=== PATIENT | male | born 1940 ===

== ENCOUNTER 2025-06-13 09:01 | Inpatient (IN) ==
[2025-06-13] MEDS ORDERED: IOPAMIDOL 100 ML BOTTLE IV ONE (09:02)
[2025-06-13 09:43] LABS: Basophils # (Auto) 0.02 K/mcL (0.00-0.30); Basophils % (Auto) 0.2 % (0.0-2.0); Eosinophils # (Auto) 0.01 K/mcL (0.00-0.70); Eosinophils % (Auto) 0.1 % (0.0-7.0); Hematocrit 46.2 % (40.1-51.0); Hemoglobin 15.7 g/dL (13.7-17.5); Lymphocytes # (Auto) 1.66 K/mcL (1.50-4.80); Lymphocytes % (Auto) 13.3 % (15.5-49.0); Mean Corpuscular HGB Conc 34.0 g/dL (31.0-36.0); Monocytes # (Auto) 0.95 K/mcL (0.10-0.90); Monocytes % (Auto) 7.6 % (1.0-12.0); Neutrophils % (Auto) 78.1 % (38.0-78.0); Platelet Count 249 K/mcL (140-440); RBC 5.30 M/mcL (4.63-6.08); WBC 12.5 K/mcL (4.5-11.0)
[2025-06-13 09:53] LABS: INR 1.1 (0.9-1.1); Prothrombin Time 14.5 sec (11.9-14.5)
[2025-06-13 09:58] LABS: Creatine Kinase 24 U/L (24-195)
[2025-06-13 10:03] LABS: Thyroid Stimulating Hormone 1.10 uIU/mL (0.27-5.01)
[2025-06-13 10:23] LABS: Beta Hydroxybutyrate 4.03 mmol/L (<0.27)
[2025-06-13 10:25] LABS: ALT/SGPT 17 U/L (<40); AST/SGOT 13 U/L (<40); Albumin 3.0 gm/dL (3.2-5.2); Albumin/Globulin Ratio 1.2 (1.0-2.3); Alkaline Phosphatase 67 U/L (39-117); Anion Gap 21.0 (8.0-16.0); Bilirubin,Total 0.9 mg/dL (0.1-1.0); Blood Urea Nitrogen 41 mg/dL (8-23); Calcium 9.1 mg/dL (8.6-10.4); Carbon Dioxide 24 mmol/L (22-30); Chloride 80 mmol/L (96-108); Globulin 2.6 gm/dL (2.2-3.7); Glucose 485 mg/dL (70-105); Potassium 3.1 mmol/L (3.3-5.1); Sodium 125 mmol/L (133-145)
[2025-06-13] MEDS: POTASSIUM CHLORIDE 40 MEQ in DEXTROSE 5% IN WATER 500 ML IV ONE (11:19)
[2025-06-13] MEDS: 0.9 % SODIUM CHLORIDE 1,000 ML IV ONE (11:19)
[2025-06-13] MEDS: POTASSIUM CHLORIDE 20 MEQ/10 ML VIAL IV ONE (11:59)
[2025-06-13] MEDS: cefTRIAXone 2 GM in DEXTROSE 5% IN WATER 50 ML IV ONE (13:10)
[2025-06-13 13:26] LABS: Bilirubin,Urine Negative (Negative); Color,Urine Yellow; Glucose,Urine (UA) 500 mg/dL (Negative); Ketones,Urine 80 mg/dL (Negative); Leukocyte Esterase,Urine Negative /uL (Negative); PH,Urine 6.5 (5.0-9.0); Protein,Urine Negative (Negative); Specific Gravity,Urine <= 1.005 (1.000-1.035); Urobilinogen,Urine Normal
[2025-06-13] MEDS: AZITHROMYCIN 500 MG in DEXTROSE 5% IN WATER 250 ML IV ONE (13:26)
[2025-06-13] MEDS ORDERED: SENNOSIDES 1 TABLET PO SCH (15:25)
[2025-06-13] MEDS ORDERED: DEXTROSE 31 GM ORAL.SUSP PO PRN (15:25)
[2025-06-13] MEDS ORDERED: DEXTROSE 50% 50 ML VIAL IV PRN (15:25)
[2025-06-13] MEDS: INSULIN LISPRO 1 UNIT/0.01 ML UNIT SQ SCH (16:23)
[2025-06-13] MEDS: LACTATED RINGERS 1,000 ML IV SCH (16:23)
[2025-06-13] MEDS: ACETAMINOPHEN 325 MG TABLET PO PRN (16:23)
[2025-06-13] MEDS: 0.9 % SODIUM CHLORIDE 10 ML SYRINGE IV SCH (16:24)
[2025-06-13] MEDS: ONDANSETRON 4 MG/2 ML VIAL IV PRN (16:24)
[2025-06-13 16:30] LABS: ALT/SGPT 14 U/L (<40); AST/SGOT 14 U/L (<40); Albumin 2.8 gm/dL (3.2-5.2); Albumin/Globulin Ratio 1.1 (1.0-2.3); Alkaline Phosphatase 64 U/L (39-117); Anion Gap 17.0 (8.0-16.0); Bilirubin,Direct 0.3 mg/dL (<0.3); Bilirubin,Total 0.6 mg/dL (0.1-1.0); Blood Urea Nitrogen 32 mg/dL (8-23); Calcium 8.5 mg/dL (8.6-10.4); Carbon Dioxide 23 mmol/L (22-30); Chloride 85 mmol/L (96-108); Globulin 2.6 gm/dL (2.2-3.7); Glucose 412 mg/dL (70-105); Phosphorous 2.4 mg/dL (2.5-4.5); Potassium 3.7 mmol/L (3.3-5.1); Sodium 125 mmol/L (133-145); Triglycerides 149 mg/dL (<150); Uric Acid 7.0 mg/dL (2.5-8.0)
[2025-06-13 18:05] LABS: Estimated Average Glucose(eAG) 186 mg/dL; Hemoglobin A1C 8.1 % Hgb (4.0-6.0)
[2025-06-13] MEDS: INSULIN GLARGINE, HUMAN 1 UNIT/0.01 ML SQ SCH (20:58)
[2025-06-13] MEDS ORDERED: INSULIN GLARGINE, HUMAN 1 UNIT/0.01 ML SQ SCH (21:00)
[2025-06-13] MEDS ORDERED: HYDROmorphone 0.5 MG/0.5 ML SYRINGE IV PRN (21:09)
[2025-06-13] MEDS: BENZONATATE 100 MG CAPSULE PO PRN (21:29)
[2025-06-13] MEDS: CALCIUM CARBONATE 500 MG TAB.CHEW CHEWED PRN (21:29)
[2025-06-14 06:38] LABS: Basophils # (Auto) 0.02 K/mcL (0.00-0.30); Basophils % (Auto) 0.2 % (0.0-2.0); Eosinophils # (Auto) 0.10 K/mcL (0.00-0.70); Eosinophils % (Auto) 0.9 % (0.0-7.0); Hematocrit 39.0 % (40.1-51.0); Hemoglobin 13.2 g/dL (13.7-17.5); Lymphocytes # (Auto) 1.60 K/mcL (1.50-4.80); Lymphocytes % (Auto) 14.7 % (15.5-49.0); Mean Corpuscular HGB Conc 33.8 g/dL (31.0-36.0); Monocytes # (Auto) 0.81 K/mcL (0.10-0.90); Monocytes % (Auto) 7.5 % (1.0-12.0); Neutrophils % (Auto) 75.9 % (38.0-78.0); Platelet Count 199 K/mcL (140-440); RBC 4.41 M/mcL (4.63-6.08); WBC 10.9 K/mcL (4.5-11.0)
[2025-06-14 07:05] LABS: ALT/SGPT 11 U/L (<40); AST/SGOT 17 U/L (<40); Albumin 2.5 gm/dL (3.2-5.2); Albumin/Globulin Ratio 1.1 (1.0-2.3); Alkaline Phosphatase 48 U/L (39-117); Anion Gap 7.0 (8.0-16.0); Bilirubin,Direct 0.3 mg/dL (<0.3); Bilirubin,Total 0.6 mg/dL (0.1-1.0); Blood Urea Nitrogen 23 mg/dL (8-23); Calcium 8.1 mg/dL (8.6-10.4); Carbon Dioxide 29 mmol/L (22-30); Chloride 95 mmol/L (96-108); Globulin 2.2 gm/dL (2.2-3.7); Glucose 110 mg/dL (70-105); Phosphorous 1.8 mg/dL (2.5-4.5); Potassium 3.2 mmol/L (3.3-5.1); Sodium 131 mmol/L (133-145); Triglycerides 101 mg/dL (<150); Uric Acid 4.7 mg/dL (2.5-8.0)
[2025-06-14] MEDS: cefTRIAXone 2 GM in DEXTROSE 5% IN WATER 50 ML IV SCH (08:47)
[2025-06-14] MEDS: AZITHROMYCIN 500 MG in DEXTROSE 5% IN WATER 250 ML IV SCH (08:47)
[2025-06-14] MEDS: POTASSIUM CHLORIDE 20 MEQ TABLET PO ONE (08:48)
[2025-06-14] MEDS: ENOXAPARIN 40 MG/0.4 ML SYRINGE SQ SCH (08:48)
[2025-06-14] MEDS ORDERED: IOPAMIDOL 100 ML BOTTLE IV ONE (09:54)
[2025-06-14] MEDS: LACTULOSE 20 GM/30 ML ORAL.SOL PO PRN (10:45)
[2025-06-14] MEDS: POLYETHYLENE GLYCOL 3350 17 GM PACKET PO SCH (14:01)
[2025-06-14] MEDS: INSULIN LISPRO 1 UNIT/0.01 ML UNIT SQ SCH (16:26)
[2025-06-14] MEDS: SIMVASTATIN 20 MG TABLET PO SCH (21:05)
[2025-06-14] MEDS: TAMSULOSIN 0.4 MG CAPSULE PO SCH (21:05)
[2025-06-15 06:10] LABS: Basophils # (Auto) 0.02 K/mcL (0.00-0.30); Basophils % (Auto) 0.3 % (0.0-2.0); Eosinophils # (Auto) 0.15 K/mcL (0.00-0.70); Eosinophils % (Auto) 2.0 % (0.0-7.0); Hematocrit 38.0 % (40.1-51.0); Hemoglobin 12.6 g/dL (13.7-17.5); Lymphocytes # (Auto) 1.62 K/mcL (1.50-4.80); Lymphocytes % (Auto) 21.6 % (15.5-49.0); Mean Corpuscular HGB Conc 33.2 g/dL (31.0-36.0); Monocytes # (Auto) 0.54 K/mcL (0.10-0.90); Monocytes % (Auto) 7.2 % (1.0-12.0); Neutrophils % (Auto) 67.6 % (38.0-78.0); Platelet Count 172 K/mcL (140-440); RBC 4.24 M/mcL (4.63-6.08); WBC 7.5 K/mcL (4.5-11.0)
[2025-06-15 06:35] LABS: ALT/SGPT 16 U/L (<40); AST/SGOT 16 U/L (<40); Albumin 2.5 gm/dL (3.2-5.2); Albumin/Globulin Ratio 1.1 (1.0-2.3); Alkaline Phosphatase 51 U/L (39-117); Anion Gap 9.0 (8.0-16.0); Bilirubin,Direct 0.2 mg/dL (<0.3); Bilirubin,Total 0.4 mg/dL (0.1-1.0); Blood Urea Nitrogen 18 mg/dL (8-23); Calcium 8.4 mg/dL (8.6-10.4); Carbon Dioxide 26 mmol/L (22-30); Chloride 97 mmol/L (96-108); Globulin 2.2 gm/dL (2.2-3.7); Glucose 149 mg/dL (70-105); Phosphorous 2.1 mg/dL (2.5-4.5); Potassium 3.6 mmol/L (3.3-5.1); Sodium 132 mmol/L (133-145); Triglycerides 121 mg/dL (<150); Uric Acid 3.0 mg/dL (2.5-8.0)
[2025-06-15] MEDS: INSULIN GLARGINE, HUMAN 1 UNIT/0.01 ML SQ SCH (08:45)
[2025-06-15] MEDS: NEUTRA PHOS 1 PACKET PO SCH (08:45)
[2025-06-16 05:44] LABS: Basophils # (Auto) 0.03 K/mcL (0.00-0.30); Basophils % (Auto) 0.3 % (0.0-2.0); Eosinophils # (Auto) 0.17 K/mcL (0.00-0.70); Eosinophils % (Auto) 1.9 % (0.0-7.0); Hematocrit 37.2 % (40.1-51.0); Hemoglobin 12.4 g/dL (13.7-17.5); Lymphocytes # (Auto) 1.62 K/mcL (1.50-4.80); Lymphocytes % (Auto) 17.8 % (15.5-49.0); Mean Corpuscular HGB Conc 33.3 g/dL (31.0-36.0); Monocytes # (Auto) 0.69 K/mcL (0.10-0.90); Monocytes % (Auto) 7.6 % (1.0-12.0); Neutrophils % (Auto) 71.0 % (38.0-78.0); Platelet Count 188 K/mcL (140-440); RBC 4.16 M/mcL (4.63-6.08); WBC 9.1 K/mcL (4.5-11.0)
[2025-06-16] MEDS: INSULIN GLARGINE, HUMAN 1 UNIT/0.01 ML SQ SCH (08:39)
[2025-06-16] MEDS: INSULIN LISPRO 1 UNIT/0.01 ML UNIT SQ SCH (10:15)
[2025-06-16 11:08] LABS: Albumin 2.6 gm/dL (3.2-5.2); Anion Gap 9.0 (8.0-16.0); Blood Urea Nitrogen 13.0 mg/dL (8-23); Calcium 8.0 mg/dL (8.6-10.4); Carbon Dioxide 25.0 mmol/L (22-30); Chloride 97.0 mmol/L (96-108); Glucose 197.0 mg/dL (70-105); Phosphorous 3.2 mg/dL (2.5-4.5); Potassium 4.0 mmol/L (3.3-5.1); Sodium 131.0 mmol/L (133-145)
== END 2025-06-16 15:50 | disposition home or self-care (01) | DRG 193 ==
LOC: ED 09:01 → ICU 14:51 → MEDSUR 06-14 19:31
PROVIDERS: ADMIT Internal Medicine; ATTEND Internal Medicine

== ENCOUNTER 2025-07-27 05:34 | Inpatient (IN) ==
[2025-07-27] MEDS: DEXTROSE 5%-NS 1,000 ML IV ONE (05:57)
[2025-07-27 06:06] LABS: Basophils # (Auto) 0.03 K/mcL (0.00-0.30); Basophils % (Auto) 0.4 % (0.0-2.0); Eosinophils # (Auto) 0.13 K/mcL (0.00-0.70); Eosinophils % (Auto) 1.8 % (0.0-7.0); Hematocrit 39.0 % (40.1-51.0); Hemoglobin 12.2 g/dL (13.7-17.5); Lymphocytes # (Auto) 1.34 K/mcL (1.50-4.80); Lymphocytes % (Auto) 18.2 % (15.5-49.0); Mean Corpuscular HGB Conc 31.3 g/dL (31.0-36.0); Monocytes # (Auto) 0.43 K/mcL (0.10-0.90); Monocytes % (Auto) 5.8 % (1.0-12.0); Neutrophils % (Auto) 72.8 % (38.0-78.0); Platelet Count 162 K/mcL (140-440); RBC 4.13 M/mcL (4.63-6.08); WBC 7.4 K/mcL (4.5-11.0)
[2025-07-27 06:25] LABS: ALT/SGPT 20 U/L (<40); AST/SGOT 22 U/L (<40); Albumin 3.4 gm/dL (3.2-5.2); Albumin/Globulin Ratio 1.6 (1.0-2.3); Alkaline Phosphatase 75 U/L (39-117); Anion Gap 8.0 (8.0-16.0); Bilirubin,Total 0.5 mg/dL (0.1-1.0); Blood Urea Nitrogen 12 mg/dL (8-23); Calcium 8.6 mg/dL (8.6-10.4); Carbon Dioxide 29 mmol/L (22-30); Chloride 101 mmol/L (96-108); Globulin 2.1 gm/dL (2.2-3.7); Glucose 56 mg/dL (70-105); Potassium 4.4 mmol/L (3.3-5.1); Sodium 138 mmol/L (133-145)
[2025-07-27 06:48] LABS: INR 0.9 (0.9-1.1); Partial Thromboplastin Time 29.3 sec (20.0-37.0); Prothrombin Time 13.1 sec (11.9-14.5)
[2025-07-27] MEDS: LIDOCAINE 2% URO-JET 10 ML JEL.PF.APP UR ONE (09:19)
[2025-07-27] MEDS ORDERED: ONDANSETRON 4 MG/2 ML VIAL IV PRN (11:39)
[2025-07-27] MEDS ORDERED: HYDROcodone/APAP 10/325MG TABLET PO PRN (11:39)
[2025-07-27] MEDS ORDERED: MAGNESIUM HYDROXIDE 30 ML ORAL.SUSP PO PRN (11:39)
[2025-07-27] MEDS ORDERED: BENZOCAINE/MENTHOL 1 LOZENGE PO PRN (11:39)
[2025-07-27] MEDS ORDERED: MIDAZOLAM 2 MG/2 ML VIAL ONE (11:48)
[2025-07-27] MEDS ORDERED: PROPOFOL 200 MG/20 ML VIAL IV ONE (11:48)
[2025-07-27] MEDS ORDERED: DEXAMETHASONE 10 MG/ML VIAL ONE (11:48)
[2025-07-27] MEDS ORDERED: FAMOTIDINE/PF 20 MG/2 ML VIAL IV ONE (11:48)
[2025-07-27] MEDS ORDERED: GLYCOPYRROLATE 0.2 MG/ML VIAL IV ONE (11:48)
[2025-07-27] MEDS ORDERED: ONDANSETRON 4 MG/2 ML VIAL ONE (11:48)
[2025-07-27] MEDS ORDERED: LIDOCAINE 2% PF 5 ML VIAL ONE (11:48)
[2025-07-27] MEDS ORDERED: METOCLOPRAMIDE 10 MG/2 ML VIAL ONE (11:48)
[2025-07-27] MEDS ORDERED: HYDROmorphone 0.5 MG/0.5 ML SYRINGE ONE (12:42)
[2025-07-27] MEDS ORDERED: fentaNYL 100 MCG/2 ML VIAL ONE (12:50)
[2025-07-27] MEDS ORDERED: DROPERIDOL 5 MG/2 ML VIAL IV PRN (13:08)
[2025-07-27] MEDS ORDERED: fentaNYL 100 MCG/2 ML VIAL IV PRN (13:08)
[2025-07-27] MEDS ORDERED: IPRATROPIUM/ALBUTEROL 3 ML AMPUL.NEB NEB PRN (13:08)
[2025-07-27] MEDS ORDERED: HYDROmorphone 0.5 MG/0.5 ML SYRINGE IV PRN (13:08)
[2025-07-27] MEDS ORDERED: BUPIVACAINE PF 0.5% 10 ML VIAL ONE (13:24)
[2025-07-27] MEDS ORDERED: BUPIVACAINE LIPOSOMAL 1.3% 10 ML VIAL IJ ONE (13:24)
[2025-07-27] MEDS: ACETAMINOPHEN 1,000 MG/100 ML BAG IV ONE (13:46)
[2025-07-27] MEDS: TRANEXAMIC ACID 1,000 MG/10 ML VIAL IV ONE (13:46)
[2025-07-27] MEDS: TRANEXAMIC ACID 1,000 MG/10 ML VIAL ONE (13:55)
[2025-07-27] MEDS ORDERED: ePHEDrine 50 MG/5 ML SYRINGE (ANEST) IV ONE (13:56)
[2025-07-27] MEDS: 0.9 % SODIUM CHLORIDE 10 ML SYRINGE IV SCH (14:28)
[2025-07-27] MEDS: 0.9 % SODIUM CHLORIDE 1,000 ML IV SCH (15:24)
[2025-07-27] MEDS: KETOROLAC 15 MG/ML VIAL IV PRN (16:21)
[2025-07-27] MEDS: LACTATED RINGERS 1,000 ML IV SCH (16:35)
[2025-07-27] MEDS ORDERED: DEXTROSE 31 GM ORAL.SUSP PO PRN (17:36)
[2025-07-27] MEDS ORDERED: DEXTROSE 50% 50 ML VIAL IV PRN (17:36)
[2025-07-27] MEDS: ASPIRIN 81 MG TAB.CHEW CHEWED SCH (20:56)
[2025-07-27] MEDS: DOCUSATE SODIUM 100 MG CAPSULE PO SCH (20:56)
[2025-07-27] MEDS: INSULIN LISPRO 1 UNIT/0.01 ML UNIT SQ SCH (20:57)
[2025-07-27] MEDS: INSULIN GLARGINE, HUMAN 1 UNIT/0.01 ML SQ SCH (20:58)
[2025-07-27] MEDS ORDERED: MAGNESIUM OXIDE 400 MG TABLET PO SCH (21:00)
[2025-07-28 07:43] LABS: Phosphorous 2.9 mg/dL (2.5-4.5)
[2025-07-28 07:51] LABS: ALT/SGPT 15 U/L (<40); AST/SGOT 22 U/L (<40); Albumin 2.9 gm/dL (3.2-5.2); Albumin/Globulin Ratio 1.6 (1.0-2.3); Alkaline Phosphatase 66 U/L (39-117); Anion Gap 6.0 (8.0-16.0); Bilirubin,Total 0.3 mg/dL (0.1-1.0); Blood Urea Nitrogen 16 mg/dL (8-23); Calcium 8.2 mg/dL (8.6-10.4); Carbon Dioxide 30 mmol/L (22-30); Chloride 101 mmol/L (96-108); Globulin 1.8 gm/dL (2.2-3.7); Glucose 109 mg/dL (70-105); Potassium 4.4 mmol/L (3.3-5.1); Sodium 137 mmol/L (133-145)
[2025-07-28 08:03] LABS: Basophils # (Auto) 0.01 K/mcL (0.00-0.30); Basophils % (Auto) 0.1 % (0.0-2.0); Eosinophils # (Auto) 0.02 K/mcL (0.00-0.70); Eosinophils % (Auto) 0.2 % (0.0-7.0); Hematocrit 31.9 % (40.1-51.0); Hemoglobin 10.1 g/dL (13.7-17.5); Lymphocytes # (Auto) 1.28 K/mcL (1.50-4.80); Lymphocytes % (Auto) 14.3 % (15.5-49.0); Mean Corpuscular HGB Conc 31.7 g/dL (31.0-36.0); Monocytes # (Auto) 0.71 K/mcL (0.10-0.90); Monocytes % (Auto) 8.0 % (1.0-12.0); Neutrophils % (Auto) 77.3 % (38.0-78.0); Platelet Count 157 K/mcL (140-440); RBC 3.39 M/mcL (4.63-6.08); WBC 8.9 K/mcL (4.5-11.0)
[2025-07-28] MEDS: PANTOPRAZOLE 40 MG TABLET PO SCH (08:03)
[2025-07-28] MEDS ORDERED: HYDROCHLOROTHIAZIDE 25 MG TABLET PO SCH (09:00)
[2025-07-28] MEDS: LOSARTAN 50 MG TABLET PO SCH (09:57)
[2025-07-29] MEDS: TEMAZEPAM 15 MG CAPSULE PO PRN (02:20)
[2025-07-29 07:00] LABS: ALT/SGPT 12 U/L (<40); AST/SGOT 20 U/L (<40); Albumin 2.9 gm/dL (3.2-5.2); Albumin/Globulin Ratio 1.4 (1.0-2.3); Alkaline Phosphatase 65 U/L (39-117); Anion Gap 5.0 (8.0-16.0); Bilirubin,Total 0.8 mg/dL (0.1-1.0); Blood Urea Nitrogen 13 mg/dL (8-23); Calcium 8.1 mg/dL (8.6-10.4); Carbon Dioxide 28 mmol/L (22-30); Chloride 100 mmol/L (96-108); Globulin 2.1 gm/dL (2.2-3.7); Glucose 181 mg/dL (70-105); Potassium 4.7 mmol/L (3.3-5.1); Sodium 133 mmol/L (133-145)
[2025-07-29 13:33] LABS: Basophils # (Auto) 0.06 K/mcL (0.00-0.30); Basophils % (Auto) 0.6 % (0.0-2.0); Eosinophils # (Auto) 0.26 K/mcL (0.00-0.70); Eosinophils % (Auto) 2.8 % (0.0-7.0); Hematocrit 30.7 % (40.1-51.0); Hemoglobin 10.1 g/dL (13.7-17.5); Lymphocytes # (Auto) 1.83 K/mcL (1.50-4.80); Lymphocytes % (Auto) 19.6 % (15.5-49.0); Mean Corpuscular HGB Conc 32.9 g/dL (31.0-36.0); Monocytes # (Auto) 0.70 K/mcL (0.10-0.90); Monocytes % (Auto) 7.5 % (1.0-12.0); Neutrophils % (Auto) 69.0 % (38.0-78.0); Platelet Count 139 K/mcL (140-440); RBC 3.31 M/mcL (4.63-6.08); WBC 9.3 K/mcL (4.5-11.0)
[2025-07-29] MEDS: ACETAMINOPHEN 325 MG TABLET PO PRN (13:59)
[2025-07-29] MEDS: TAMSULOSIN 0.4 MG CAPSULE PO SCH (22:18)
[2025-07-29] MEDS: SIMVASTATIN 20 MG TABLET PO SCH (22:18)
[2025-07-30 07:08] LABS: ALT/SGPT 11 U/L (<40); AST/SGOT 17 U/L (<40); Albumin 2.9 gm/dL (3.2-5.2); Albumin/Globulin Ratio 1.3 (1.0-2.3); Alkaline Phosphatase 62 U/L (39-117); Anion Gap 6.0 (8.0-16.0); Bilirubin,Total 0.9 mg/dL (0.1-1.0); Blood Urea Nitrogen 15 mg/dL (8-23); Calcium 8.3 mg/dL (8.6-10.4); Carbon Dioxide 28 mmol/L (22-30); Chloride 101 mmol/L (96-108); Globulin 2.2 gm/dL (2.2-3.7); Glucose 115 mg/dL (70-105); Potassium 4.2 mmol/L (3.3-5.1); Sodium 135 mmol/L (133-145)
[2025-07-30 07:10] LABS: Basophils # (Auto) 0.02 K/mcL (0.00-0.30); Basophils % (Auto) 0.2 % (0.0-2.0); Eosinophils # (Auto) 0.27 K/mcL (0.00-0.70); Eosinophils % (Auto) 3.2 % (0.0-7.0); Hematocrit 28.3 % (40.1-51.0); Hemoglobin 9.1 g/dL (13.7-17.5); Lymphocytes # (Auto) 1.55 K/mcL (1.50-4.80); Lymphocytes % (Auto) 18.4 % (15.5-49.0); Mean Corpuscular HGB Conc 32.2 g/dL (31.0-36.0); Monocytes # (Auto) 0.57 K/mcL (0.10-0.90); Monocytes % (Auto) 6.8 % (1.0-12.0); Neutrophils % (Auto) 71.3 % (38.0-78.0); Platelet Count 144 K/mcL (140-440); RBC 3.02 M/mcL (4.63-6.08); WBC 8.4 K/mcL (4.5-11.0)
[2025-07-30] MEDS ORDERED: LOSARTAN/HCTZ 100/25 TABLET PO SCH (09:00)
[2025-07-30] MEDS: LOSARTAN 50 MG TABLET PO SCH (09:14)
[2025-07-30] MEDS: HYDROCHLOROTHIAZIDE 25 MG TABLET PO SCH (09:15)
[2025-07-30] MEDS: CYANOCOBALAMIN (VITAMIN B-12) 500 MCG TABLET PO SCH (09:17)
== END 2025-07-30 12:00 | DRG 522 ==
LOC: ED 05:34 → SUR 11:50 → MEDSUR 14:16
PROVIDERS: ADMIT Orthopaedic Surgery; ATTEND Student in an Organized Health Care Education/Training Program
PROC: HEMIHIP (2025-07-27 12:12)